=== PATIENT | female | born 1970 | race American Indian/Alaskan Native ===

== ENCOUNTER 2021-04-21 02:01 | Emergency (ER) | payer OTHER ==
[~2021-04-21] VITALS: Ht 157.5 cm; Wt 94.3 kg
[2021-04-21 03:42] LABS: Basophils # (auto) 0.1 10 ^3/uL (0-0.2); Basophils % (auto) 0.8 % (0.0-2.0); Eosinophils # (auto) 0.2 10 ^3/uL (0-0.8); Eosinophils % (auto) 1.3 % (0.0-7.0); Hematocrit 43.7 % (36.0-46.0); Hemoglobin 14.7 g/dL (12.2-16.2); Lymphocytes # (auto) 4.2 10 ^3/uL (0.4-5.4); Lymphocytes % (auto) 32.6 % (10.0-50.0); Mean Corpuscular Hemoglobin 30.9 pg (28.0-32.0); Mean Corpuscular Hgb Conc. 33.8 g/dL (32.0-36.0); Mean Corpuscular Volume 91.7 fL (80.0-100.0); Monocytes # (auto) 0.9 10 ^3/uL (0-1.3); Monocytes % (auto) 7.3 % (0.0-12.0); Neutrophils # (auto) 7.4 10 ^3/uL (1.6-8.6); Red Blood Cells 4.76 10^6/uL (4.0-5.20); Red Cell Distribution Width 13.5 % (11.8-14.3); White Blood Cell 12.8 10^3/uL (4.4-10.8)
[2021-04-21 03:44] LABS: Albumin 3.7 g/dL (3.4-5.0); Calcium 9.4 mg/dL (8.5-10.1); Potassium 4.1 mmol/L (3.5-5.1)
[2021-04-21 03:47] LABS: BUN/Creatinine Ratio 18.5
[2021-04-21 03:49] LABS: Bilirubin, Total 0.4 mg/dL (0.2-1.0); Total Protein 7.7 g/dL (6.4-8.2)
[2021-04-21 09:20] VITALS: BP 133/71
== END 2021-04-21 08:33 | disposition home or self-care (01) ==
LOC: ER 02:01
DX: R04.0 Epistaxis (principal); J45.909 Unspecified asthma, uncomplicated
CPT/HCPCS: 36415; 71046; 80053; 85025

== ENCOUNTER 2021-05-19 00:47 | Emergency (ER) | payer OTHER ==
[~2021-05-19] VITALS: Ht 160 cm; Wt 94.8 kg
[2021-05-19 00:50] VITALS: BP 159/77
[2021-05-19] MEDS ORDERED: HYDROcodone-ACET 5/325MG TAB PO ONE (02:45)
[2021-05-19 02:49] LABS: Urine Bacteria NONE SEEN /hpf (None Seen); Urine Blood Negative /uL (Negative); Urine Specific Gravity 1.003 (1.001-1.035); Urine WBC <1 /hpf (0 - 5)
== END 2021-05-19 04:30 | disposition home or self-care (01) ==
LOC: ER 00:52
DX: M54.16 Radiculopathy, lumbar region (principal); M79.18 Myalgia, other site; E66.8 Other obesity; J45.909 Unspecified asthma, uncomplicated; Z68.37 Body mass index [BMI] 37.0-37.9, adult
CPT/HCPCS: 72100; 81001

== ENCOUNTER 2021-11-27 17:43 | Emergency (ER) | payer OTHER ==
[~2021-11-27] VITALS: Ht 160 cm; Wt 102.5 kg
[2021-11-27 19:49] LABS: Basophils # (auto) 0.1 10 ^3/uL (0-0.2); Basophils % (auto) 0.7 % (0.0-2.0); Eosinophils # (auto) 0.1 10 ^3/uL (0-0.8); Eosinophils % (auto) 0.5 % (0.0-7.0); Hematocrit 45.3 % (36.0-46.0); Hemoglobin 14.5 g/dL (12.2-16.2); Lymphocytes # (auto) 2.4 10 ^3/uL (0.4-5.4); Lymphocytes % (auto) 20.3 % (10.0-50.0); Mean Corpuscular Hemoglobin 29.6 pg (28.0-32.0); Mean Corpuscular Hgb Conc. 31.9 g/dL (32.0-36.0); Mean Corpuscular Volume 92.6 fL (80.0-100.0); Monocytes # (auto) 0.7 10 ^3/uL (0-1.3); Monocytes % (auto) 5.8 % (0.0-12.0); Neutrophils # (auto) 8.5 10 ^3/uL (1.6-8.6); Neutrophils % (auto) 72.7 % (37.0-80.0); Red Blood Cells 4.89 10^6/uL (4.0-5.20); Red Cell Distribution Width 12.8 % (11.8-14.3); White Blood Cell 11.7 10^3/uL (4.4-10.8)
[2021-11-27 20:10] LABS: Potassium 3.6 mmol/L (3.5-5.1)
[2021-11-27 20:15] LABS: Albumin 3.9 g/dL (3.4-5.0); BUN/Creatinine Ratio 19.8; Bilirubin, Total 0.3 mg/dL (0.2-1.0); Calcium 9.3 mg/dL (8.5-10.1); Total Protein 8.3 g/dL (6.4-8.2)
[2021-11-27] MEDS ORDERED: ALBUTEROL SULF 2.5 MG/0.5ML(0.5%) NEB SOLN NEB ONE (23:00)
[2021-11-27] MEDS ORDERED: predniSONE 20 MG TAB PO ONE (23:00)
[2021-11-28] MEDS ORDERED: IPR002IS HHN (01:37)
[2021-11-28 02:00] VITALS: BP 131/71
== END 2021-11-28 02:47 | disposition home or self-care (01) ==
LOC: ER 17:43
DX: R06.02 Shortness of breath (principal); J45.909 Unspecified asthma, uncomplicated
CPT/HCPCS: 36415; 71045; 80053; 85025; 93005; 94640; 99285; J7512

== ENCOUNTER 2024-12-24 01:59 | Emergency (ER) | payer MEDICAID, OTHER ==
[~2024-12-24] VITALS: Ht 160 cm; Wt 106.5 kg
[~2024-12-24 01:59] MED LIST: IPR002IS HHN
[2024-12-24 03:07] LABS: Hematocrit 43.5 % (36.0-46.0); Hemoglobin 14.9 g/dL (12.2-16.2); Mean Corpuscular Hemoglobin 31.2 pg (28.0-32.0); Mean Corpuscular Volume 91.2 fL (80.0-100.0); Nucleated Red Blood Cells % 0.1 %
[2024-12-24 03:24] LABS: Albumin 4.4 g/dL (3.2-4.8); Alkaline Phosphatase 84 U/L (46-116); Anion Gap 8 (5-15); BUN/Creatinine Ratio 9.6 (10.0-20.0); Calcium 9.7 mg/dL (8.7-10.4); Carbon Dioxide 28 mmol/L (20-31); Chloride 106 mmol/L (98-107); Lipase 34 U/L (12-53); Potassium 4.1 mmol/L (3.5-5.1); Sodium 142 mmol/L (136-145); Total Protein 8.2 g/dL (5.7-8.2)
[2024-12-24 03:25] LABS: Bilirubin, Total 0.3 mg/dL (0.2-1.0)
[2024-12-24 03:28] LABS: Alanine Aminotransferase 46 U/L (7-40); Blood Urea Nitrogen 8 mg/dL (9-23); Glucose 124 mg/dL (74-106)
--- NOTE | 2024-12-24 04:06 | DVH ---
Exam: CT CT AB PEL WO CON-NO ORAL OR IV History: mid abd px Comparison Study: None Technique: Multidetector spiral CT of the abdomen was performed from lung bases to pubic symphysis. I maging was performed without IV contrast. Axial, coronal and sagittal multiplanar reformats were obta ined from the axial data set by the technologist. Radiation Dose : 1. Abdomen/Pelvis: CTDIvol 23.23 mGy, DLP 1510.89 mGy*cm. Findings: Evaluation of solid organs is limited due to lack of intravenous contrast use. Lungs: No acute or significant lung base finding. Normal heart size. No pleural or pericardial effus ion. Liver: The liver is enlarged, measuring 20.5 cm in craniocaudal dimension. Hepatic steatosis. No foc al lesions. Gallbladder and Biliary Tree: Status post cholecystectomy. Spleen: Unremarkable Pancreas: The pancreas is grossly normal in appearance. Adrenal Glands: Unremarkable Kidneys: Kidneys are grossly normal without calculi or hydronephrosis. Bladder: Grossly unremarkable for degree of distention. Bowel: Small sliding-type hiatal hernia. The stomach is grossly normal in appearance. Small bowel and colon are normal in caliber and distribution. The appendix is not visualized; however, no secondary findings of acute appendicitis identified. Ascites: Absent Lymphadenopathy: No mesenteric, retroperitoneal or periportal lymphadenopathy. Abdominal Wall and Mesentery: Unremarkable. Vasculature: The visualized abdominal aorta is normal in size and caliber. Evaluation of abdominal a nd pelvic vessels is limited due to lack of intravenous contrast. Pelvic Organs: Unremarkable status post hysterectomy. Musculoskeletal: No aggressive focal bony lesions, acute fractures or dislocation. IMPRESSION: 1. No acute abdominal or pelvic findings. 2. Hepatomegaly and hepatic steatosis. Radiation optimization: All CT scans at this facility use at least one of these dose optimization edwin hniques: automated exposure control mA and/or kV adjustment per patient size (includes targeted exam s where dose is matched to clinical indication) or iterative reconstruction.
--- NOTE | 2024-12-24 04:37 | ED.PDOC ---
GI ASSESSMENT HPI Comments 54-YEAR-OLD FEMALE PRESENTS TO THE ED FOR CONSTANT, EPIGASTRIC ABDOMINAL PAIN, N/V X3-4 DAYS. PT STATED SHE LEANED OVER, FELT A "PUSH" ON LUQ AREA WITH INCREASED PAIN. (+) GASTRIC REFLUX. GCS-15, ALL VSS. DENIES CHEST PAIN, DIFFICULTY BREATHING, SHORTNESS OF BREATH, DIZZINESS DOES STATE SOME NAUSEA DENIES VOMITING AND D IARRHEA. Chief Complaint: Abdominal Pain Time Seen by MD: 02:21 Primary Care Provider: ASCENCION Reviewed Notes: Nurses Notes, Medications, Allergies Allergies: Coded Allergies: Ibuprofen (Verified Allergy, Unknown, 11/27/21) Penicillins (Verified Allergy, Unknown, 11/27/21) Home Meds Active Scripts Pantoprazole Sodium Sesquihydr (Protonix) 40 Mg Tab, 40 MG PO DAILY for 14 Days, #14 TAB Prov:SRINIVAS BROWN MEAT APPRENTICE 12/24/24 Ipratropium [place] (Ipratropium [place]) 0.02 % Chelo, 0.5 % HHN Q6HR PRN for 3 Days, #100 ML Prov:MALIA CHUNG MD 11/28/21 Mode of Arrival: Ambulatory Past Medical History PAST MEDICAL HISTORY: Asthma Surgical History: Denies all surgeries FIRST HELPER History: No Pertinent FIRST HELPER History Family History Family History: Reviewed,noncontributory to illness Social History Smoker: Non-Smoker Alcohol: Denies ETOH Use Drugs: Denies Drug Use Lives In: Home All Other Systems: Reviewed and Negative (SEE HPI) Physical Exam General Appearance: No Apparent Distress, Normal HEENT: Pharynx Normal Neck: Full Range of Motion, Non-Tender Respiratory: Lungs Clear, No Respiratory Distress, Normal Breath Sounds Cardiovascular: No Edema, No JVD, No Murmur, No Gallop, Normal Peripheral Pulses, Regular Rate/Rhythm Breast Exam: Deferred Gastrointestinal: Epigastric (TENDER ON PALPATION), No Organomegaly, No Pulsatile Mass, Normal Bowel Sounds, Soft Genitalia: Deferred Pelvic: Deferred Rectal: Deferred Extremities: Normal range of motion, No pedal edema Musculoskeletal : Apperance: Normal Neurologic: Alert, No Motor Deficits, Normal Affect, Normal Mood, No Sensory Deficits Cerebellar Function: Normal Reflexes: NOT DONE Skin: Dry, Normal Color, Warm Lymphatic: No Adenopathy Was a procedure done? Was a procedure done?: No GI differential Dx Differential Diagnosis: Cholecystitis, Constipation, Diverticular disease, Esophagitis, Gastritis/PUD, Gastroenteritis, Inflammatory BD, Urinary Obstruction, UTI, Urolithiasis X-Ray, Labs, Meds, VS Vital Signs Date Time Temp Pulse Resp B/P (MAP) Pulse Ox O2 Delivery O2 Flow Rate FiO2 12/24/24 05:33 67 18 96 Room Air 12/24/24 05:33 98.3 67 18 136/68 (90) 96 98.3 12/24/24 02:34 97.5 95 16 144/91 96 97.5 Lab Test 12/24/24 02:47 Range/Units White Blood Count 11.0 H 4.4-10.8 10^3/uL Red Blood Count 4.77 4.0-5.20 10^6/uL Hemoglobin 14.9 12.2-16.2 g/dL Hematocrit 43.5 36.0-46.0 % Mean Corpuscular Volume 91.2 80.0-100.0 fL Mean Corpuscular Hemoglobin 31.2 28.0-32.0 pg Mean Corpuscular Hemoglobin Concent 34.2 32.0-36.0 g/dL Red Cell Distribution Width 13.1 11.8-14.3 % Platelet Count 323 140-450 10^3/uL Mean Platelet Volume 8.7 6.9-10.8 fL Neutrophils (%) (Auto) 58.2 37.0-80.0 % Lymphocytes (%) (Auto) 30.5 10.0-50.0 % Monocytes (%) (Auto) 8.9 0.0-12.0 % Eosinophils (%) (Auto) 1.5 0.0-7.0 % Basophils (%) (Auto) 0.9 0.0-2.0 % Neutrophils # (Auto) 6.4 1.6-8.6 10 ^3/uL Lymphocytes # (Auto) 3.3 0.4-5.4 10 ^3/uL Monocytes # (Auto) 1.0 0-1.3 10 ^3/uL Eosinophils # (Auto) 0.2 0-0.8 10 ^3/uL Basophils # (Auto) 0.1 0-0.2 10 ^3/uL Nucleated Red Blood Cells 0.1 % Sodium Level 142 136-145 mmol/L Potassium Level 4.1 3.5-5.1 mmol/L Chloride Level 106 98-107 mmol/L Carbon Dioxide Level 28 20-31 mmol/L Anion Gap 8 5-15 Blood Urea Nitrogen 8 L 9-23 mg/dL Creatinine 0.83 0.550-1.02 mg/dL Glomerular Filtration Rate Calc 83 >90 mL/min BUN/Creatinine Ratio 9.6 L 10.0-20.0 Serum Glucose 124 H 74-106 mg/dL Calcium Level 9.7 8.7-10.4 mg/dL Total Bilirubin 0.3 0.2-1.0 mg/dL Aspartate Amino Transferase (AST) 39 13-40 U/L Alanine Aminotransferase (ALT) 46 H 7-40 U/L Alkaline Phosphatase 84 46-116 U/L Total Protein 8.2 5.7-8.2 g/dL Albumin 4.4 3.2-4.8 g/dL Lipase 34 12-53 U/L Current Medications Medications (Trade) Dose Ordered Sig/Diana Route Start Time Stop Time Status Last Admin Al Hydrox/Mg Hydrox/Simethicone (Maalox Plus) 30 ml ONCE ONCE PO 12/24/24 04:15 12/24/24 04:16 DC 12/24/24 04:54 Belladonna Alkaloids/ Phenobarbital ( Elixir) 5 ml ONCE ONCE PO 12/24/24 04:15 12/24/24 04:16 DC 12/24/24 04:54 Lidocaine HCl (Xylocaine 2% Viscous) 10 ml ONCE ONCE PO 12/24/24 04:15 12/24/24 04:16 DC 12/24/24 04:54 Ketorolac Tromethamine (Toradol Injection) 60 mg ONCE ONCE IM 12/24/24 04:45 12/24/24 04:46 DC 12/24/24 04:54 X-Ray, Labs, Meds, VS Comment IMPRESSION: 1. No acute abdominal or pelvic findings. 2. Hepatomegaly and hepatic steatosis. CBC within normal limits CMP within normal limits UA unable to obtain PATIENT GIVEN GI COCKTAIL AND TORADOL 60 MG IM REPORTS IMPROVEMENT IN PAIN REQUESTING DISCHARGE AT THIS TIME. Likely esophageal reflux script trial of Protonix advised to take medication as prescribed side effects discussed. Advised to follow up with her PCP in 2-3 days. ER return precautions given patient indicates understanding and agrees with discharge plan of care. Time of 1ST Reevaluation: 02:21 Reevaluation 1ST: Unchanged Time of 2ND Reevaluation: 04:30 Reevaluation 2ND: Improved Patient Education/Counseling: Diagnosis, Treatment, Need For Follow Up Family Education/Counseling: No Family Present SEPSIS Sepsis Screen Date sepsis recognized/suspect: Dec 24, 2024 Time Sepsis recognized/suspect: 236 Recent Procedure: No On Antibiotic Therapy: No Respiratory Rate >20: No Heart Rate >90: No Temp<36 C (96.8 F) or >38.3 C: No SBP <90 or MAP <65 mmHG: No New Acute Mental Status Change: No Is the patient on CPAP, BIPAP,: No Physician Orders Ct Ab Pel Wo Con-No Oral Or Iv (12/24/24 02:35) Urinalysis (12/24/24 04:42) Vital Signs Date Time Temp Pulse Resp B/P (MAP) Pulse Ox O2 Delivery O2 Flow Rate FiO2 12/24/24 05:33 67 18 96 Room Air 12/24/24 05:33 98.3 67 18 136/68 (90) 96 98.3 12/24/24 02:34 97.5 95 16 144/91 96 97.5 Laboratory Tests Test 12/24/24 02:47 White Blood Count 11.0 10^3/uL (4.4-10.8) H Medications Medications Dose Ordered Sig/Diana Route Start Time Stop Time Status Last Admin Dose Admin Al Hydrox/Mg Hydrox/Simethicone 30 ml ONCE ONCE PO 12/24/24 04:15 12/24/24 04:16 DC 12/24/24 04:54 Belladonna Alkaloids/ Phenobarbital 5 ml ONCE ONCE PO 12/24/24 04:15 12/24/24 04:16 DC 12/24/24 04:54 Ketorolac Tromethamine 60 mg ONCE ONCE IM 12/24/24 04:45 12/24/24 04:46 DC 12/24/24 04:54 Lidocaine HCl 10 ml ONCE ONCE PO 12/24/24 04:15 12/24/24 04:16 DC 12/24/24 04:54 Departure 1 Departure Time of Disposition: 04:33 Impression: Primary Impression: GERD (gastroesophageal reflux disease) Qualified Codes: K21.9 - Gastro-esophageal reflux disease without esophagitis Disposition: 01 HOME / SELF CARE / HOMELESS Condition: Stable e-Prescriptions Pantoprazole Sodium Sesquihydr (Protonix) 40 Mg Tab 40 MG PO DAILY for 14 Days, #14 TAB Prov: SRINIVAS BROWN 12/24/24 Discharged With: Self Critical Care Note Critical Care Time?: No Stability Stability form required: SRINIVAS Deutsch Dec 24, 2024 04:37
[2024-12-24] MEDS: KETOROLAC TROMETH 60MG/2ML VIAL IM ONE (04:54)
[2024-12-24] MEDS: LIDOCAINE VISCOUS 2% 15ML UD PO ONE (04:54)
[2024-12-24] MEDS: DONNATAL 5ml ORAL Elix (BELLADONNA ALK-PHENOBARB) PO ONE (04:54)
[2024-12-24] MEDS: MAALOX PLUS or MAALOX 30 ML PO ONE (04:54)
[2024-12-24] MEDS ORDERED: PANT40TA2 PO (05:24)
[2024-12-24 05:33] VITALS: BP 136/68; PULSE 67; RESP 18; TEMP 98.3; O2SAT 96
== END 2024-12-24 05:33 | disposition home or self-care (01) ==
LOC: ER 01:59
DX: K21.9 Gastro-esophageal reflux disease without esophagitis (principal); J45.909 Unspecified asthma, uncomplicated; Z88.0 Allergy status to penicillin; Z79.899 Other long term (current) drug therapy; Z88.6 Allergy status to analgesic agent
CPT/HCPCS: 36415; 74176; 80053; 83690; 85025; 96372; 99285; J1885

== ENCOUNTER 2025-01-13 10:54 | Emergency (ER) | payer OTHER ==
[~2025-01-13] VITALS: Ht 160 cm; Wt 102.8 kg
[2025-01-13] MEDS: OXYMETAZOLINE HCL 0.05 % NASAL SPRAY 15ML EACHNOSTRI ONE (11:28)
--- NOTE | 2025-01-13 11:30 | ED.PDOC ---
Epistaxis- HPI HPI Comments A 54 YEAR OLD FEMALE PRESENTS TO THE ED WITH COMPLAINT OF NOSEBLEED. PATIENT STATES HE HAS BEEN EXPERIENCING NOSEBLEEDS OFF AND ON SINCE 12/20/2024 AND BEGAN TO EXPERIENCE NOSE BLEEDING AGAIN TODAY THAT HAS CONTINUED FOR THE LAST 1 HOUR. PATIENT REPORTS HER BLEEDING INITIALLY STARTED FROM HER LEFT NOSTRIL. PATIENT DENIES VISION CHANGES, SLURRED SPEECH, ONE-SIDED WEAKNESS, FACIAL DROOP, FEVER, CHILLS, SHORTNESS OF BREATH, CHEST PAIN, ABDOMINAL PAIN, NAUSEA, VOMITING, HEADACHE, OR OTHER COMPLAINTS. NO OTHER SYMPTOMS OR MODIFYING FACTORS AT THIS TIME. PATIENT IS ALERT, ORIENTED X 4, AND HAS STEADY GAIT. Chief Complaint: Nose Bleed Time Seen by MD: 11:08 Primary Care Provider: ASCENCION Mary Notes: Nurses Notes, Medications, Allergies Allergies: Coded Allergies: Ibuprofen (Verified Allergy, Unknown, 11/27/21) Penicillins (Verified Allergy, Unknown, 11/27/21) Home Meds Active Scripts Ipratropium [place] (Ipratropium [place]) 0.02 % Chelo, 0.5 % HHN Q6HR PRN for 3 Days, #100 ML Prov:MALIA CHUNG MD 11/28/21 Discontinued Scripts Pantoprazole Sodium Sesquihydr (Protonix) 40 Mg Tab, 40 MG PO DAILY for 14 Days, #14 TAB Prov:SRINIVAS BROWN 12/24/24 Information Source: Patient Mode of Arrival: Ambulatory Severity: Bleeding Controlled Timing: Days Duration: Intermittent Prehospital treatment: None Location: Left naris Mechanism: Spontaneous onset Circumstances: Unknown Use of: None History of: Nasal bleeding Last Tetanus: UTD, Unknown Nose: Normal Nose: Intranasal/Septum: Blood Bleeding Status: No active bleeding Bleeding Amount: Moderate Source: Left, Little's area Associated signs and symptoms: None Past Medical History PAST MEDICAL HISTORY: Asthma Past Medical History (Other): LUPUS Surgical History: Denies all surgeries HAND MOLD MAKER History: No Pertinent HAND MOLD MAKER History Family History Family History: Reviewed,noncontributory to illness Social History Smoker: Non-Smoker Alcohol: Denies ETOH Use Drugs: Denies Drug Use Lives In: Home Constitutional: denies: chills, diaphoresis, fatigue, fever, malaise, sweats, weakness, others EENTM: reports: nose bleeding; denies: blurred vision, double vision, ear bleeding, ear discharge, ear drainage, ear pain, ear ringing, eye pain, eye redness, hearing loss, mouth pain, mouth swelling, nasal discharge, nose congestion, nose pain, photophobia, tearing, throat pain, throat swelling, voice changes, others Respiratory: denies: cough, hemoptysis, orthopnea, SOB at rest, shortness of breath, SOB with excertion, stridor, wheezing, others Cardiovascular: denies: chest pain, dizzy spells, diaphoresis, Dyspnea on exertion, edema, irregular heart beat, left arm pain, lightheadedness, palpitations, PND, syncope, others Gastrointestinal: denies: abdomen distended, abdominal pain, blood streaked bowels, constipated, diarrhea, dysphagia, difficulty swallowing, hematemesis, melena, nausea, poor appetite, poor fluid intake, rectal bleeding, rectal pain, vomiting, others Genitourinary: denies: abnormal vagina bleeding, burning, dyspareunia, dysuria, flank pain, frequency, hematuria, incontinence, pain, , vagina discharge, urgency, others Neurological: denies: dizziness, fainting, headache, left sided numbness, left sided weakness, numbness, paresthesia, pre-existing deficit, right sided numbness, right sided weakness, seizure, speech problems, tingling, tremors, weakness, others Musculoskeletal: denies: back pain, gout, joint pain, joint swelling, muscle pain, muscle stiffness, neck pain, others Integumetry: denies: bruises, change in color, change in hair/nails, dryness, laceration, lesions, lumps, rash, wounds, others Allergic/Immunocompromised: denies: Difficulty Healing, Frequent Infections, Hives, Itching, others Hematologic/Lymphatic: denies: anemia, blood clots, easy bleeding, easy bruising, swollen glands, others Endocrine: denies: excessive hunger, excessive sweating, excessive thirst, excessive urination, flushing, intolerance to cold, intolerance to heat, unex plained weight gain, unexplained weight loss, others Psychiatric: denies: anxiety, bipolar disorder, depression, hopeless, panic disorder, schizophrenia, sleepless, suicidal, others All Other Systems: Reviewed and Negative Physical Exam General Appearance: No Apparent Distress, Obese HEENT: Normal ENT Inspection, PERRL/EOMI, Pharynx Normal, TMs Normal, Other (LEFT NOSTRIL BLEEDING, NO BLOOD CLOTS AND FB. +ANTERIOR NOSE BLEEDING. ) Neck: Full Range of Motion, Non-Tender, Normal, Normal Inspection Respiratory: Chest Non-Tender, Lungs Clear, No Accessory Muscle Use, No Respiratory Distress, Normal Breath Sounds Cardiovascular: No Edema, No JVD, No Murmur, No Gallop, Normal Peripheral Pulses, Regular Rate/Rhythm Breast Exam: Deferred Gastrointestinal: No Organomegaly, Non Tender, No Pulsatile Mass, Normal Bowel Sounds, Soft Genitalia: Deferred Pelvic: Deferred Rectal: Deferred Extremities: No calf tenderness, Normal capillary refill, Normal inspection, Normal range of motion, Non-tender, No pedal edema Musculoskeletal : Apperance: Normal Neurologic: Alert, director patient accounting II-XII nml as Tested, No Motor Deficits, Normal Affect, Normal Mood, No Sensory Deficits Cerebellar Function: Normal Reflexes: Normal Skin: Dry, Normal Color, Warm Peripheral Pulses: 2+ carotid (R), 2+ carotid (L) Lymphatic: No Adenopathy Was a procedure done? Was a procedure done?: Yes Sedation Sedation?: No Other Procedure Informed consent obtained: No Risks, benefits, and alternati: Yes Notes PATIENT WAS INSTRUCTED TO BLOW HER NOSE TO REMOVE ANY POSSIBLE BLOOD CLOTS FROM HER NOSE. +ANTERIOR NOSE BLEED. ONE SPRAY OF AFRIN WAS APPLIED TO THE PATIENT'S NOSTRILS AND THEY WERE MONITORED FOR 30 MINUTES AND NO BLEEDING WAS NOTED. Differential Diagnosis (NSB) Differential Diagnosis: Anterior Nasal Bleed X-Ray, Labs, Meds, VS Vital Signs Date Time Temp Pulse Resp B/P (MAP) Pulse Ox O2 Delivery O2 Flow Rate FiO2 01/13/25 12:40 98.0 67 18 141/77 (98) 96 98.0 01/13/25 12:40 67 18 96 Room Air 01/13/25 11:02 97.9 84 18 141/67 97 97.9 Lab Test 01/13/25 11:42 Range/Units White Blood Count 11.0 H 4.4-10.8 10^3/uL Red Blood Count 5.16 4.0-5.20 10^6/uL Hemoglobin 16.1 12.2-16.2 g/dL Hematocrit 47.6 H 36.0-46.0 % Mean Corpuscular Volume 92.2 80.0-100.0 fL Mean Corpuscular Hemoglobin 31.2 28.0-32.0 pg Mean Corpuscular Hemoglobin Concent 33.9 32.0-36.0 g/dL Red Cell Distribution Width 13.4 11.8-14.3 % Platelet Count 297 140-450 10^3/uL Mean Platelet Volume 8.8 6.9-10.8 fL Neutrophils (%) (Auto) 67.2 37.0-80.0 % Lymphocytes (%) (Auto) 25.3 10.0-50.0 % Monocytes (%) (Auto) 5.4 0.0-12.0 % Eosinophils (%) (Auto) 1.3 0.0-7.0 % Basophils (%) (Auto) 0.8 0.0-2.0 % Neutrophils # (Auto) 7.4 1.6-8.6 10 ^3/uL Lymphocytes # (Auto) 2.8 0.4-5.4 10 ^3/uL Monocytes # (Auto) 0.6 0-1.3 10 ^3/uL Eosinophils # (Auto) 0.1 0-0.8 10 ^3/uL Basophils # (Auto) 0.1 0-0.2 10 ^3/uL Nucleated Red Blood Cells 0.0 % Prothrombin Time 10.6 9.3-11.8 sec Prothrombin Time INR 1.00 0.9-1.15 Sodium Level 138 136-145 mmol/L Potassium Level 4.8 3.5-5.1 mmol/L Chloride Level 107 98-107 mmol/L Carbon Dioxide Level 23 20-31 mmol/L Anion Gap 8 5-15 Blood Urea Nitrogen 10 9-23 mg/dL Creatinine 0.89 0.550-1.02 mg/dL Glomerular Filtration Rate Calc 77 >90 mL/min BUN/Creatinine Ratio 11.2 10.0-20.0 Serum Glucose 90 74-106 mg/dL Calcium Level 9.4 8.7-10.4 mg/dL X-Ray, Labs, Meds, VS Comment EXTERNAL MEDICAL RECORDS REVIEWED: [NONE] INDEPENDENT HISTORIANS: [NONE] SOCIAL DETERMINANTS OF HEALTH: [NONE] LABS ORDERED: CBC, BMP, PT/INR REVIEWED AND INTERPRETED RESULTS: NORMAL IMAGING ORDERED: NONE TREATMENTS ORDERED: PATIENT WAS INSTRUCTED TO BLOW HER NOSE TO REMOVE ANY POSSIBLE BLOOD CLOTS FROM HER NOSE. +ANTERIOR NOSE BLEED. ONE SPRAY OF AFRIN WAS APPLIED TO THE PATIENT'S NOSTRILS AND THEY WERE MONITORED FOR 30 MINUTES AND NO BLEEDING WAS NOTED. PROCEDURES PERFORMED: NONE CRITICAL CARE TIME: NONE I HAVE DISCUSSED THE PATIENT WITH THE ATTENDING PHYSICIAN DR. LEARY AND HE AGREES WITH THE PATIENT'S PLAN OF CARE AND DISPOSITION. BASED ON HISTORY OF PRESENT ILLNESS, AND PHYSICAL EXAM, PATIENT WILL BE DISCHARGED HOME. SHARED DECISION MAKING: DISCUSSED WITH PATIENT THAT THEIR WORKUP WAS NORMAL. PATIENT INSTRUCTED TO FOLLOW UP WITH PRIMARY CARE PROVIDER IN 1-2 DAYS FOR RE- EVALUATION OF SYMPTOMS. PATIENT VERBALIZES UNDERSTANDING TO RETURN TO ED FOR NEW OR WORSENING SYMPTOMS OR IF FOLLOW UP WITH PCP CANNOT BE OBTAINED. PATIENT FEELS COMFORTABLE GOING HOME AT THIS TIME. ALL QUESTIONS ADDRESSED AT TIME OF DISCHARGE. Time of 1ST Reevaluation: 13:05 Reevaluation 1ST: Improved Patient Education/Counseling: Diagnosis, Treatment, Need For Follow Up Family Education/Counseling: Diagnosis, Treatment, Need For Follow Up Medical Screening: No EMC Exist At This Time Departure 1 Departure Time of Disposition: 13:05 Impression: Primary Impression: Anterior epistaxis Disposition: 01 HOME / SELF CARE / HOMELESS Condition: Stable Additional Instructions: FOLLOW-UP WITH PCP IN 1 TO 2 DAYS. TAKE MEDICATIONS PRESCRIBED. RETURN TO ED FOR ANY NEW OR WORSENING SYMPTOMS. Discharged With: Self Critical Care Note Critical Care Time?: No Stability Stability form required: No I personally scribed for LUCY SALDIVAR ([email or web address]) on 01/13/25 at 11:30. Electronically submitted by Min Gomez ([email or web address]). I personally scribed for LUCY SALDIVAR ([email or web address]) on 01/13/25 at 11:30. Electronically submitted by Min Gomez ([email or web address]). I personally scribed for LUCY SALDIVAR ([email or web address]) on 01/13/25 at 13:01. Electronically submitted by Min Gomez ([email or web address]). LUCY SALDIVAR Jan 13, 2025 11:30
[2025-01-13 11:53] LABS: Hematocrit 47.6 % (36.0-46.0); Hemoglobin 16.1 g/dL (12.2-16.2); Mean Corpuscular Hemoglobin 31.2 pg (28.0-32.0); Mean Corpuscular Volume 92.2 fL (80.0-100.0); Nucleated Red Blood Cells % 0.0 %
[2025-01-13 12:07] LABS: INR 1.0 (0.9-1.15); Prothrombin Time 10.6 sec (9.3-11.8)
[2025-01-13 12:11] LABS: Chloride 107 mmol/L (98-107); Potassium 4.8 mmol/L (3.5-5.1); Sodium 138 mmol/L (136-145)
[2025-01-13 12:12] LABS: Anion Gap 8 (5-15); Calcium 9.4 mg/dL (8.7-10.4); Carbon Dioxide 23 mmol/L (20-31)
[2025-01-13 12:17] LABS: BUN/Creatinine Ratio 11.2 (10.0-20.0); Blood Urea Nitrogen 10 mg/dL (9-23); Glucose 90 mg/dL (74-106)
[2025-01-13 12:40] VITALS: BP 141/77; PULSE 67; RESP 18; TEMP 98; O2SAT 96
== END 2025-01-13 12:46 | disposition home or self-care (01) ==
LOC: ER 10:54
DX: R04.0 Epistaxis (principal); J45.909 Unspecified asthma, uncomplicated; Z88.0 Allergy status to penicillin; Z88.6 Allergy status to analgesic agent
CPT/HCPCS: 36415; 80048; 85025; 85610